=== PATIENT | male | born 1955 | race Caucasian/White ===

== ENCOUNTER → 2022-07-01 | Emergency (ER) | payer BC, MEDICARE ==
[~2022-07-01] MED LIST: methylPREDNISolone Sodium Succinate 125 MG/2 ML SDV ONE
== END ==
LOC: LL.ED 10:00
DX: S69.92XA Unspecified injury of left wrist, hand and finger(s), initial encounter (principal); S69.91XA Unspecified injury of right wrist, hand and finger(s), initial encounter; X50.1XXA Overexertion from prolonged static or awkward postures, initial encounter
CPT/HCPCS: 96372; 99283; J2930